=== PATIENT | male | born 1950 ===

== ENCOUNTER 2019-03-18 08:40 | Day surgery (SDC) | payer OTHER ==
[~2019-03-18] VITALS: Ht 182.9 cm; Wt 115.4 kg
[~2019-03-18 08:40] MED LIST: FISH1000 PO; LOSARTAN POTAS100 MG PO; PIRO20 PO
--- NOTE | 2019-03-18 12:41 | NUR ---
03/18/19 1241 Tian Marie DISCHARGE INSTRUCTIONS REVIEWED WITH PT AND SPOUSE. PT TOLERATING PO FLUIDS WELL, HAS NO CONCERNS AND VSS.
== END 2019-03-18 10:05 | disposition home or self-care (01) ==
LOC: ORSCSDS 08:40
PROVIDERS: Internal Medicine Gastroenterology
PROC: 0DBK8ZX Excision of Ascending Colon, Via Natural or Artificial Opening Endoscopic, Diagnostic (ICD-10-PCS; principal; 2019-03-18 10:00)
PROC: 0DBM8ZX Excision of Descending Colon, Via Natural or Artificial Opening Endoscopic, Diagnostic (ICD-10-PCS; principal; 2019-03-18 10:00)
DX: Z12.11 Encounter for screening for malignant neoplasm of colon (principal); D12.2 Benign neoplasm of ascending colon; D12.4 Benign neoplasm of descending colon; K64.8 Other hemorrhoids; K57.30 Diverticulosis of large intestine without perforation or abscess without bleeding; Z86.010 Personal history of colon polyps; I10 Essential (primary) hypertension; Z79.899 Other long term (current) drug therapy
CPT/HCPCS: 88305; J2704; J7120

== ENCOUNTER 2024-05-28 08:26 | Day surgery (SDC) | payer OTHER ==
[~2024-05-28] VITALS: Ht 182.9 cm; Wt 95.9 kg
[~2024-05-28 08:26] MED LIST changes: +Lactated Ringer's 1,000 ML IV ONE; +propofoL 50 ML IV ONE
[2024-05-28] MEDS ORDERED: ZYRTEC10 MG (08:38)
[2024-05-28] MEDS ORDERED: HYDCHL25 (08:38)
[2024-05-28] MEDS ORDERED: OMEP20ER (08:39)
[2024-05-28] MEDS ORDERED: LOSA50 (08:39)
[2024-05-28] MEDS ORDERED: ZOCOR20 MG (08:39)
[2024-05-28] MEDS ORDERED: Lactated Ringer's 1,000 ML IV ONE (09:07)
[2024-05-28 10:30] VITALS: BP 94/64
== END 2024-05-28 10:30 | disposition home or self-care (01) ==
LOC: ORSCSDS 08:26
PROVIDERS: Internal Medicine Gastroenterology
PROC: 0DBL8ZX Excision of Transverse Colon, Via Natural or Artificial Opening Endoscopic, Diagnostic (ICD-10-PCS; principal; 2024-05-28 10:00)
PROC: 0DBN8ZX Excision of Sigmoid Colon, Via Natural or Artificial Opening Endoscopic, Diagnostic (ICD-10-PCS; principal; 2024-05-28 10:00)
DX: R19.5 Other fecal abnormalities (principal); Z86.0101 Personal history of adenomatous and serrated colon polyps; Z80.0 Family history of malignant neoplasm of digestive organs; D12.5 Benign neoplasm of sigmoid colon; K63.5 Polyp of colon; K57.30 Diverticulosis of large intestine without perforation or abscess without bleeding; K64.4 Residual hemorrhoidal skin tags; Z79.899 Other long term (current) drug therapy
CPT/HCPCS: 88305; J2704; J7120